=== PATIENT | female | born 1980 | race Caucasian/White ===

== ENCOUNTER 2023-10-08 18:48 | Emergency (ER) | payer OTHER, BC, SELFPAY ==
[2023-10-08 18:49] VITALS: BP 123/89; PULSE 76; RESP 16; TEMP 36.6; O2SAT 100; BMI 20.7
--- NOTE | 2023-10-08 19:02 | EX.ED.UPPERE ---
HPI <Dr. Alcides Alex DO - Last Filed: 10/08/23 19:46> History of Present Illness Chief Complaint: Laceration Detail of Chief Complaint: Laceration to right small finger Informant: patient Narrative Narrative: Patient presents to the emergency department with laceration to the right small finger that occurred while at work today. She states that she cut it on some metal banding. Patient unsure of her last tetanus shot but does not want a tetanus. PFSH <Dr. Alcides Alex DO - Last Filed: 10/08/23 19:46> PFSH Medical History no medical history Allergy/AdvReac Type Severity Reaction Status Date / Time No Known Allergies Allergy Verified 10/08/23 18:49 Surgical History (Updated 10/08/23 @ 19:16 by Nasreen Puga) H/O: hysterectomy Social History Smoking Status: Current some day smoker tobacco type: cigarettes ROS <Dr. Alcides Alex DO - Last Filed: 10/08/23 19:46> ROS ED Review of Systems ROS Unobtainable: other Constitutional Constitutional ED: Reports lethargy; Denies chills, fever(s), sweats or weight loss Eyes Eyes: Denies blurry vision, change in vision or diplopia ENT ENT ED: Denies rhinorrhea or sore throat Cardiovascular Cardiovascular: Denies chest pain, orthopnea or racing heartbeat Respiratory/Chest Respiratory/Chest: Denies cough, dyspnea, dyspnea on exertion, orthopnea or sputum Gastrointestinal Gastrointestinal: Denies abdominal pain, diarrhea, nausea or vomiting Genitourinary Genitourinary ED: Denies dysuria, hematuria or urinary frequency Musculoskeletal Musculoskeletal: Reports other Details: Laceration right small finger ; Denies arthralgias, back pain, myalgias or neck pain Integumentary Denies abscess, Abrasions or rash Neurologic Neurologic: Denies headache(s) or weakness Psychiatric Psychiatric: Denies anxiety, depression or suicidal thoughts Endocrine Endocrinology: Denies polydipsia, polyphagia or polyuria Hematologic/Lymphatic Hematologic/Lymphatic: Denies easy bleeding, easy bruising or lymphadenopathy Allergic/Immunologic Allergic/Immunologic ED: Denies mouth swelling, tongue swelling or urticaria EXAM <Dr. Alcides Alex DO - Last Filed: 10/08/23 19:46> Physical Exam Const Vital Signs: 10/08/23 18:49 Temperature 97.9 F Temperature Source Temporal Pulse Rate 76 Respiratory Rate 16 Blood Pressure 123/89 H Blood Pressure Mean 100 Pulse Ox 100 Oxygen Delivery Method Room Air Positive well nourished and well developed General Appearance ED: well developed and NAD HEENT Reports TM's clear and moist mucous membranes normocephalic and atraumatic; Negative for trauma or tenderness Tympanic Membrane ED: Yes TM's clear Eyes PERRL and EOMs intact bilaterally General Eye ED: Negative for pale conjunctiva or scleral icterus Neck no lymphadenopathy, supple and no JVD General: Negative for tenderness Chest Wall inspection of chest normal and palpation of chest normal Chest: Negative for tenderness Resp normal respiratory effort and clear to auscultation bilaterally Effort and Inspection: Negative for respiratory distress or pain with movement Auscultation: Negative for rhonchi, wheezes or diminished lung sounds Cardio regular rate, regular rhythm, S1 normal heart sound, S2 normal heart sound and no murmurs Peripheral Pulses: pulses 2+ throughout GI normal to inspection, nondistended, normoactive bowel sounds, soft to palpation, non-tender, non-distended and no masses Back/Spine no CVA tenderness and no thoracic nor lumbar tenderness Extremity normal to inspection Extremity Narrative: Right small finger-patient has a 2 cm laceration over the volar aspect of the DIP joint of the small finger. Normal flexion extension of the digit against resistance. Neurovascular intact distally. General Extremety ED: Negative for edema General Extremity: Negative for edema Neuro oriented x3, CN's II-XII intact bilaterally, no sensory deficits noted and gait normal Sensorium / Orientation: awake, alert, oriented to person, oriented to place and oriented to time Motor Exam: strength 5/5 throughout and strength abnormal Psych mental status grossly normal Skin no rashes or lesions noted and no wounds [facility] <Dr. Alcides Alex, DO - Last Filed: 10/08/23 19:46> [facility] Narrative Medical decision making narrative: Patient has a laceration to the right small finger. No evidence of tendon injury. 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 See procedure note. Clean dressing was applied. Patient advised to have her sutures removed in 10 days. She is to return if increasing pain, redness, swelling, purulent drainage or condition worsening way. I discussed risk-benefit of tetanus immunization with patient. She understands my concerns. She understands tetanus can be life-threatening. Does not want tetanus shot. Clinically I do not feel this is a tetanus prone wound. Procedures <KIRILL Granados - Last Filed: 10/08/23 19:50> Lacerations left pink finger: Length: 2 cm Depth: Sub Q Shape: Linear Irrigated (ml): 200 Number of Sutures/[place]: 4 Suture Information: Ethilon and 4-0 Discharge Plan Triage Chief Complaint: Laceration ED Midlevel Provider: Mary Sánchez ED Provider: Alcides Alex Dx/Rx/DC Orders Clinical Impression: Finger laceration Instructions: ED Laceration, Hand: All Closures Primary Care Provider: Care Physician,No Primary Referrals: Corporate,Care [Group of Physicians] - 10 Day for suture removal [facility] Doctor,Out of [Non-Staff] - Disposition Disposition: Home, Self Care
[2023-10-08] MEDS: Lidocaine 1% (20 ml mdv) 20 ML Vial 6 ML INFILT (19:13)
[2023-10-08 20:11] VITALS: BP 133/80; PULSE 69; RESP 18; TEMP 36.7; O2SAT 100
== END 2023-10-08 20:00 | disposition home or self-care (01) ==
PROVIDERS: Emergency Provider Emergency Medicine; Visit Provider Emergency Medicine
DX: S61.216A Laceration without foreign body of right little finger without damage to nail, initial encounter (principal); F17.210 Nicotine dependence, cigarettes, uncomplicated; X58.XXXA Exposure to other specified factors, initial encounter
CPT/HCPCS: 12001; 99284